=== PATIENT | female | born 1955 | race Caucasian/White ===

== ENCOUNTER → 2016-11-06 | Day surgery (SDC) | payer OTHER ==
[~2016-11-06] MED LIST: Acetaminophen TAB* 325 MG PO PRN; Buffered Lidocaine 1% SYR 3ML* 3 ML/SYR SYRINGE INTRADERM ONE; Buffered Lidocaine 1% SYR 3ML* 3 ML/SYR SYRINGE ONE; Dexamethasone IV* 4 MG/ML 1 ML (4 MG) ONE; DiMENhydriNATE IV* 50 MG/ML VIAL IV PUSH PRN; DiMENhydriNATE IV* 50 MG/ML VIAL ONE; Famotidine IV* 10 MG/ML 2 ML (20 mg) IV ONE; Famotidine IV* 10 MG/ML 2 ML (20 mg) ONE; HYDROmorphone INJ* 1 MG/ML CARPUJECT SYRINGE IV PRN; Ketorolac INJ* 30 MG/ML 1 ML VIAL ONE; Lidocaine 2% MPF* 2 ML VIAL ONE; Midazolam* 1 MG/ML 5 ML VIAL (5 MG) ONE; Ondansetron INJ* 2 MG/ML VIAL ONE; Propofol* 10 MG/ML 20 ML BTL IV PUSH ONE; ceFOXitin 2 GM IVPREMIX* 2 GM/50 ML BAG ONE; fentaNYL* 50 MCG/ML 2 ML VIAL (100 MCG VIAL) ONE; oxyCODONE/Acetamin 5/325 MG* TAB ONE; oxyCODONE/Acetamin 5/325 MG* TAB PO PRN
[2016-11-06 09:42] VITALS: BP 117/82
--- NOTE | 2016-11-06 21:12 | OP ---
DATE OF OPERATION: 11/06/16 [facility] DATE OF : 59 SURGEON: Yeni Obrien MD PUBLIC HEALTH TECHNICIAN: None. ANESTHESIOLOGIST: Dr. Armando. ANESTHESIA: General endotracheal. PRE-OP DIAGNOSIS: Endometrial mass, probable endometrial polyp. POST-OP DIAGNOSIS: Endometrial mass, probable endometrial polyp. OPERATIVE PROCEDURE: Dilation, curettage, and hysteroscopy. ESTIMATED BLOOD LOSS: Minimal. URINE OUTPUT: 200 cc of clear yellow urine. FLUIDS: 1000 cc of crystalloid. DEFICIT: 40 cc of lactated Ringer's. FINDINGS: Revealed a large 1 cm polyp in the posterior wall of the uterus. Bicornuate uterus identified based on hysteroscopic appearance of endometrial cavity. Normal tubal ostia seen bilaterally. COMPLICATIONS: None apparent. DISPOSITION: Stable to recovery room. DESCRIPTION OF PROCEDURE: The patient was placed in dorsal lithotomy position. The perineum and vagina were prepped and draped in a sterile standard fashion. The patient was identified with universal protocol for correct procedure, patient, and position. A sterile speculum was inserted after drainage of the bladder with self-cath for 200 cc. The cervix was grasped from the anterior lip with a single-tooth tenaculum and dilated to a #7 Hegar dilator. Hysteroscope was inserted. Uterine cavity was noted to have a thickened central portion of the myometrium consistent with bicornuate uterus. The tubal ostia were seen bilaterally and noted to have a normal appearance. There was a 1 cm posterior wall endometrial polyp. Hysteroscope was then removed. Sharp curettage was performed and the polyp was then removed with polyp forceps. Hysteroscope was inserted confirming a normal uterine cavity with removal of polyp with both tubal ostia again visualized. The patient tolerated the procedure well. Hysteroscope was removed. Single-tooth tenaculum was removed. Sterile speculum was removed. All sponge, instrument, and blade counts were correct throughout the case. The patient was stable and tolerated the procedure throughout and was returned to recovery room in stable condition. [id number]/CPS #: [id number] MTDD
== END | disposition home or self-care (01) ==
LOC: OR 06:24
PROVIDERS: ATTEND Obstetrics & Gynecology
DX: N84.0 Polyp of corpus uteri (principal); N93.8 Other specified abnormal uterine and vaginal bleeding; E03.9 Hypothyroidism, unspecified
CPT/HCPCS: 88305; A9270-GY; J0694; J1100; J1240; J1885; J2250; J2405; J2704; J3010

== ENCOUNTER 2018-07-18 07:12 | Emergency (ER) | payer OTHER ==
[2018-07-18 07:28] VITALS: BP 146/105
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
== END 2018-07-18 07:55 | disposition home or self-care (01) ==
LOC: UCEAST 07:12
DX: F07.81 Postconcussional syndrome (principal); H81.10 Benign paroxysmal vertigo, unspecified ear; R03.0 Elevated blood-pressure reading, without diagnosis of hypertension; Z88.2 Allergy status to sulfonamides; Z91.018 Allergy to other foods
CPT/HCPCS: 99211; G0463